=== PATIENT | male | born 1955 | race Caucasian/White ===

== ENCOUNTER → 2018-03-25 15:11 | Outpatient (CLI) | payer OTHER, SELFPAY ==
[2018-03-25 18:09] LABS: Absolute Lymphocyte Count 1.39 X10^3/ul (0.83-4.51); Absolute Neutrophil Count 5.6 X10^3/uL (2.0-7.7); Basophil# 0.02 X10^3/uL; Basophil% 0.3 % (0-1); Eosinophil# 0.04 X10^3/uL; Eosinophils% 0.5 % (0-5); Hemoglobin 14.8 g/dl (13.0-16.5); Lymphocyte # 1.39 X10^3/ul (4.0); Lymphocyte % 18.7 % (19-41); Mean Corp Hgb Conc 33.6 g/gl (32-36); Mean Corpuscular Volume 92.1 fL (80-94); Mean Platelet Vol. 10.2 fl (6.2-12.0); Monocyte# 0.41 X10^3/uL; Monocyte% 5.5 % (0-10); Neutrophil # 5.59 X10^3/uL (2.7-7.7); Platelet Count 216 K/mm3 (150-450); RBC Distribution Width CV 12.4 % (11.6-14.6); RBC Distribution Width SD 41.7 fl (35.1-43.9); Red Blood Count 4.78 M/mm3 (4.6-6.2); White Blood Count 7.5 K/mm3 (4.4-11.0)
[2018-03-25 18:10] LABS: POSITIVE COUNT NO; POSITIVE DIFFERENTIAL NO; POSITIVE MORPHOLOGY NO
[2018-03-25 18:22] LABS: AST(SGOT) 16 U/L (15-37); Alanine Aminotransfer ALT/SGPT 30 U/L (16-61); Alkaline Phosphatase 65 U/L (45-117); Anion Gap 7 (5-15); BUN 20 mg/dL (7-18); BUN/Creat Ratio 25.3 RATIO (10-20); Chloride 105 mmol/L (98-107); Cholesterol 168 mg/dL (200); Creatinine, Serum 0.79 mg/dL (0.70-1.30); EST Glomerular Filtration Rate 106 mL/min (>60); Est Glom Filt Rate - Afr Amer 129 mL/min (>60); Glucose 88 mg/dL (74-106); High Density Lipoprotein 49 mg/dL; Potassium 4.1 mmol/L (3.5-5.1); Sodium Level 139 mmol/L (136-145); Triglycerides 132 mg/dL; Very Low Density Lipoprotein 26 mg/dL (5-40)
== END ==
PROVIDERS: Family Provider Family Medicine; PCP Family Medicine; Visit Provider Family Medicine
DX: Z00.00 Encounter for general adult medical examination without abnormal findings (principal)
CPT/HCPCS: 36415; 80053; 80061; 85025

== ENCOUNTER → 2019-07-31 06:15 | Outpatient (CLI) | payer OTHER, SELFPAY ==
[2019-07-31 08:17] LABS: M R Staph aureus DNA By PCR Negative (Negative); Probe Check PASS; Specimen Processing Control PASS
== END ==
PROVIDERS: Family Provider Family Medicine; PCP Family Medicine; Referring Provider Internal Medicine Pulmonary Disease; Visit Provider Internal Medicine Pulmonary Disease
DX: T78.40XA Allergy, unspecified, initial encounter (principal)
CPT/HCPCS: 87641

== ENCOUNTER 2020-02-23 16:30 | Outpatient (RCR) | payer OTHER, SELFPAY ==
--- NOTE | 2020-02-18 18:07 | HP.PTEVAL_ITS ---
Patient's Visit Information NAKUL JOINER is a 64 year old M referred to Physical Therapy by Darnell Mccollum DO with a diagnosis of LBP. Date of Evaluation: 02/18/20 Physical Therapist: Get Ross PT, ATC - Visit Plan Frequency: 2x /Week Duration: 3 Weeks Plan: REIL, core strengthening, postural education, HEP. - Subjective Subjective: Pt reports he has had LBP for 3 weeks. Pt reports he has had this pain in the past that resolved itself. Pt notes the pain had an insidious onset in nature. Pt reports he has been on an antiinflammatory which has helped some. Pt reports it is tight in his L glute region. Pt reports occasional R LE tingling and numbness, but yolanda right now although his R foot feels like is wants to fall asleep right now. No sleep difficulty at this time secondary to pain. Pt reports he is able to perform most of his ADL's and work requirements without significant difficulty. 1/10 pain at rest, 9/10 pain at worst. Pt reports riding in a car, standing after sitting, all increase his pain. - Pain R LBP Pain Intensity (Out of 10): 1 Pain Intensity Range: 9 - Objective Neuro: B LE sensation is WNL to light touch. B patellar reflex= 2/3. MMT: B LE's are grossly 4/5 throughout. ROM: Pt is lmoderately limited with ext. WNL all other motions. Repeated movements: RFIS increased pain. REIL 10x2 decreased pain. Flexibility: B LE's WNL - Goals Goal 1:: Decrease LBP x 50% to aid with IADL's Goal Time Frame: 2-4 Weeks Goal 2:: Increase L/S ROM x 1 grade to aid with IADL's Goal Time Frame: 2-4 Weeks Goal 3:: I with HEP Goal Time Frame: 2-4 Weeks - Rehabilitation Potential Physical Therapy Diagnosis: Pt has LBP, decreased ROM, and limitations with work tolerance secondary to L/S derrangment Rehabilitation Potential: Good - Anticipated Interventions Patient/Client Instruction: Educate patient on: Condition, Plan of Care For the Purpose of:: To improve self management Therapeutic Exercise to Include: Strength training, Body mechanics, Postural training, Active ROM, Dynamic Lumbar Stabilization, Colleen Exercises For the Purpose of:: To decrease pain, To increase ROM, To improve muscle performance and motor function Thank you for the opportunity to evaluate your patient. For Medicare and Medicare HMO plans, please review the plan of care and approve it. It will need to be FAXED BACK to us at [phone] for Medicare purposes. For Medicare only, by signing this I certify the plan of care. Please let me know if there are questions or concerns regarding this plan of care. Physician Signature: Date:
--- NOTE | 2020-07-27 12:23 | HP.PT.NRP ---
NAKUL Lucio RHYS was seen in my office for initial evaluation on 02/18/20. The following Plan of Care was established for this patient: Initial Frequency: 2x /Week Initial Duration: 3 Weeks Patient/Client Instruction: Educate patient on: Condition, Plan of Care For the Purpose of:: To improve self management Therapeutic Exercise to Include: Strength training, Body mechanics, Postural training, Active ROM, Dynamic Lumbar Stabilization, Colleen Exercises For the Purpose of:: To decrease pain, To increase ROM, To improve muscle performance and motor function This patient was last seen in our office . Pertinent comments regarding their Physical therapy will appear below: Pt was treated for 2 PT visits for low back pain through 02/23/20. Pt has not returned through todays date and is discontinued at this time. At this point I will be discontinuing this patient from physical therapy. I would be happy to see this patient again in the future if found appropriate by the physician. Thank you! Get Ross, PT, ATC
== END 2020-02-23 19:00 | disposition home or self-care (01) ==
LOC: PT 16:30
PROVIDERS: PCP Family Medicine; Referring Provider Family Medicine; Visit Provider Family Medicine
DX: M54.16 Radiculopathy, lumbar region (principal)
CPT/HCPCS: 97110; 97161

== ENCOUNTER 2021-02-02 12:00 | Outpatient (RCR) | payer OTHER, SELFPAY ==
[2016-06-15 20:22] VITALS: BMI 24.3
[2021-02-02] MEDS: COVID-19 VACC, MRNA(PFIZER)/PF 30 MCG/0.3 ML SYRINGE IM (10:11)
[2021-02-23] MEDS: COVID-19 VACC, MRNA(PFIZER)/PF 30 MCG/0.3 ML SYRINGE IM (10:04)
== END 2021-05-02 23:59 ==
LOC: IMMUN 12:00
PROVIDERS: PCP Family Medicine; Visit Provider Family Medicine
DX: Z23 Encounter for immunization (principal)
CPT/HCPCS: 0001A; 0002A; 91300

== ENCOUNTER → 2021-11-06 12:30 | Outpatient (CLI) | payer SELFPAY ==
--- NOTE | 2021-11-06 12:38 | CT_ITS ---
STUDY: CARDIAC CALCIUM SCORING - CT CHEST REASON FOR EXAM: Male, 66 years old. CTA CORONARY ABNL CARDIOVASCULAR RESULTS TECHNIQUE: Axial non-enhanced images were acquired through the heart for the sole purpose of measuring coronary artery calcium. Individualized dose optimization techniques were used for this CT. COMPARISON: None. FINDINGS: Visualized surrounding anatomy: Normal. Left Main Coronary Artery: 0 Left Anterior Descending Artery: 0 Left Circumflex Artery: 0 Right Coronary Artery: 12.3 Total Calcium Score: 12.3 CT/Limited Chest CT w/CCTA IMPRESSION: A Calcium Score of 12.3 places the patient in the approximate < 25 percentile, based on the TRAN data calculator. Please go to: [email or web address]-[email or web address]/input.[email or web address] , for a description of the calculator. Electronically Signed: Get Paniagua MD at 14:55 EST , Service support ,
[2021-11-06 12:44] VITALS: BP 145/78; PULSE 64; RESP 18; O2SAT 96; BMI 25.1
--- NOTE | 2021-11-06 17:46 | CA.SCORE ---
Calcium Scoring Date of Study:: 11/06/21 Coronary Calcium Scoring: High-resolution Computed Tomographic imaging of the chest was performed on [ ], with particular attention paid to the coronary arteries. Images from the examination were analyzed for the presence and extent of coronary artery calcification , using coronary calcium quantification software. The patient tolerated the procedure well and there were no complications. The results of the coronary calcification analysis are provided below. Findings Coronary Artery Left Main (LM): 0 Left Anterior Descending (LAD): 0 Left Circumflex (LCX): 0 Right Coronary Artery (RCA): 12.3 Total Agatston Score: 12.3 Percentile Ranking: According to prepublished reference tables less than 25% of patients of the same gender / similar age had the same / lower scores Calcium Scoring Interpretation: 0 No identifiable atherosclerotic plaque. Very low cardiovascular disease risk. <5% chance of presence coronary artery disease A Negative Examination 1-10 Minimal Plaque burden. Significant coronary artery disease very unlikely. 11-100 Mild plaque burden. Likely mild or minimal coronary atherosclerosis. 101-400 Moderate plaque burden Moderate non-obstructive coronary artery disease highly likely. Over 400 Extensive plaque burden. High likelihood of at least one significant coronary stenosis (>50% diameter) Calcium Score: 11 - 100 Likely mild or minimal coronary stenosis Conclusion: Continue cardiovascular risk factor evaluation and care as deemed appropriate. This note was generated using a voice recognition system and there may be incorrect words, spelling or punctuation that were not noted when reviewing the office note prior to saving.
== END ==
PROVIDERS: PCP Family Medicine; Referring Provider Family Medicine; Visit Provider Family Medicine
DX: R07.89 Other chest pain (principal)
CPT/HCPCS: 75571; 76380

== ENCOUNTER → 2021-11-21 15:18 | Outpatient (CLI) | payer OTHER, SELFPAY | PROVIDERS: PCP Family Medicine; Visit Provider Physician Assistant Surgical | DX: U07.1 COVID-19 (principal) | CPT/HCPCS: 87635; U0005; U0003 ==

== ENCOUNTER 2022-10-10 13:42 | Outpatient (CLI) | payer MEDICARE, SELFPAY ==
--- NOTE | 2022-10-10 13:44 | ECHOD_ITS ---
Reason For Study: CSA Procedure This was a 2D Doppler, Color Flow transthoracic echocardiogram. Exam performed in department. Left Ventricle Normal size and thickness. The left ventricular ejection fraction is 60 %. Normal diastololic function. Right Ventricle Normal right ventricle. Atria The left and right atria are normal. Mitral Valve Mild (1+) mitral valve insufficiency. Tricuspid Valve Mild tricuspid valve insufficiency. Normal pulmonary artery pressure. Aortic Valve Normal aortic valve. Pulmonic Valve The pulmonic valve is not well visualized. Great Vessels Normal sized aortic root. Pericardium/Pleural No pericardial effusion. MMode/2D Measurements & Calculations LVIDd: 4.8 cm IVSd: 0.91 cm Ao root diam: 3.0 cm LVIDs: 3.1 cm LVPWd: 0.98 cm RVDd: 3.5 cm FS: 36.0 % LAV(MOD-bp): 54.7 ml LVAd ap4: 27.3 cm2 LVAd ap2: 26.0 cm2 LAV(MOD-bp) Indexed: 27.4 ml/m2 LVLd ap4: 7.1 cm LVLd ap2: 7.3 cm LAV(MOD-sp2): 55.8 ml EDV(MOD-sp4): 87.4 ml EDV(MOD-sp2): 76.3 ml LAV(MOD-sp4): 51.8 ml EDV(sp4-el): 89.9 ml EDV(sp2-el): 78.9 ml LVAs ap4: 13.0 cm2 LVAs ap2: 13.4 cm2 LVLs ap4: 5.0 cm LVLs ap2: 5.7 cm ESV(MOD-sp4): 29.7 ml ESV(MOD-sp2): 27.5 ml ESV(sp4-el): 28.5 ml ESV(sp2-el): 27.0 ml EF(MOD-sp4): 66.1 % EF(MOD-sp2): 64.0 % EF(sp4-el): 68.3 % SV(MOD-sp4): 57.8 ml SV(MOD-sp2): 48.9 ml SV(sp4-el): 61.4 ml LA dimension(2D): 3.9 cm LA A4 area: 17.0 cm2 RA A4 area: 17.6 cm2 Time Measurements MV dec time: 0.24 sec Doppler Measurements & Calculations MV E max reg: 51.8 cm/sec Lat Peak E' Reg: 8.1 cm/sec Med Peak E' Reg: 9.6 cm/sec MV A max reg: 59.9 cm/sec E/E' lat: 6.4 E/E' med: 5.4 MV E/A: 0.87 MV dec slope: 233.7 cm/sec2 Ao V2 max: 105.1 cm/sec LV V1 max: 86.4 cm/sec Ao max P.4 mmHg LV V1 max P.0 mmHg Ao V2 mean: 74.2 cm/sec LV V1 mean P.8 mmHg Ao mean P.5 mmHg LV V1 mean: 63.3 cm/sec Ao V2 VTI: 23.3 cm LV V1 VTI: 19.1 cm PA V2 max: 66.2 cm/sec TR max reg: 233.1 cm/sec TR max P.8 mmHg ECHO/Echo Complete Interpretation Summary The left ventricular ejection fraction is 60 %. Mild (1+) mitral valve insufficiency. Mild tricuspid valve insufficiency. Ordering Physician: Sergio Graham V Referring Physician: Darnell Mccollum Performed By: Tracee Winchester RDCS, RVT
== END 2022-10-10 23:59 | disposition home or self-care (01) ==
PROVIDERS: PCP Family Medicine; Visit Provider Internal Medicine Pulmonary Disease
DX: G47.33 Obstructive sleep apnea (adult) (pediatric) (principal); G47.37 Central sleep apnea in conditions classified elsewhere
CPT/HCPCS: 93306

== ENCOUNTER → 2022-10-23 | Outpatient (CLI) | payer MEDICARE, SELFPAY ==
[2022-10-23 12:25] LABS: Absolute Lymphocyte Count 1.11 X10^3/uL (0.83-4.51); Absolute Neutrophil Count 4.5 X10^3/uL (2.0-7.7); Basophil# 0.02 X10^3/uL; Basophil% 0.3 % (0-1); Eosinophil# 0.05 X10^3/uL; Eosinophils% 0.8 % (0-5); Hematocrit 45.7 % (40-54); Hemoglobin 15.4 g/dL (13.0-16.5); Lymphocyte # 1.11 X10^3/ul (0.83-4.51); Lymphocyte % 18.3 % (19-41); Mean Corp Hgb Conc 33.7 g/dL (32-36); Mean Corpuscular Hgb 30.8 pg (27.0-32.0); Mean Corpuscular Volume 91.4 fL (80-94); Mean Platelet Vol. 10.2 fl (6.2-12.0); Monocyte# 0.42 X10^3/uL; Monocyte% 6.9 % (0-10); NRBC Flagged by Analyzer 0 % (0-5); Neutrophil # 4.47 X10^3/uL (2.7-7.7); Neutrophil % 73.5 % (47-70); Platelet Count 248 K/mm3 (150-450); RBC Distribution Width CV 12.4 % (11.6-14.6); RBC Distribution Width SD 41.1 fl (35.1-43.9); White Blood Count 6.1 K/mm3 (4.4-11.0)
[2022-10-23 13:15] LABS: ALB/GLOB Ratio 0.9 RATIO (0.9-2.4); AST(SGOT) 26 U/L (15-37); Alanine Aminotransfer ALT/SGPT 44 U/L (16-61); Albumin, Serum 3.7 g/dL (3.2-5.0); Alkaline Phosphatase 75 U/L (45-117); Anion Gap 10 (5-15); BUN 17 mg/dL (7-18); BUN/Creat Ratio 16.7 RATIO (10-20); Calcium,Total 9.1 mg/dL (8.5-10.1); Chloride 103 mmol/L (98-107); Cholesterol 245 mg/dL (200); Creatinine, Serum 1.02 mg/dL (0.70-1.30); EST Glomerular Filtration Rate 78 mL/min (>60); Est Glom Filt Rate - Afr Amer 94 mL/min (>60); Globulin 4.1 g/dL (2.2-4.2); Glucose 101 mg/dL (74-106); High Density Lipoprotein 56 mg/dL; PSA,Total - Annual Screen 3.28 ng/mL (0.00-4.00); Potassium 3.9 mmol/L (3.5-5.1); Protein, Total 7.8 g/dL (6.4-8.2); Sodium Level 137 mmol/L (136-145); Triglycerides 122 mg/dL; Very Low Density Lipoprotein 24 mg/dL (5-40)
[2022-10-23 13:33] LABS: Hepatitis C Antibody Non-Reactive (Nonreactive)
== END | disposition home or self-care (01) ==
LOC: BFHLAB 08:55
PROVIDERS: PCP Family Medicine; Visit Provider Family Medicine
DX: I10 Essential (primary) hypertension (principal); R53.83 Other fatigue; Z12.5 Encounter for screening for malignant neoplasm of prostate; Z11.59 Encounter for screening for other viral diseases; Z91.89 Other specified personal risk factors, not elsewhere classified
CPT/HCPCS: 36415; 80053; 80061; 84153; 84403; 85025; 86803; G0103

== ENCOUNTER 2023-04-25 09:27 | Day surgery (SDC) | payer MEDICARE, SELFPAY ==
--- NOTE | 2023-04-19 07:09 | EKG12_ITS ---
Test Reason : PRE OP Blood Pressure : / mmHG Vent. Rate : 063 BPM Atrial Rate : 063 BPM P-R Int : 144 ms QRS Dur : 086 ms QT Int : 380 ms P-R-T Axes : 065 042 058 degrees QTc Int : 388 ms Normal sinus rhythm Normal ECG Confirmed by KAR MARTINEZ, RAYMUNDO ([id number]), advertising editor SNOW CUMMINGS ([id number]) on 04/19/2023 1:29:24 PM Referred By: Munir Chávez Confirmed By:RAYMUNDO LAKHANI MD
[2023-04-19 08:35] LABS: Hematocrit 43.6 % (40-54); Hemoglobin 14.5 g/dL (13.0-16.5); Mean Corp Hgb Conc 33.3 g/dL (32-36); Mean Corpuscular Hgb 30.8 pg (27.0-32.0); Mean Corpuscular Volume 92.6 fL (80-94); Mean Platelet Vol. 10.2 fl (6.2-12.0); Platelet Count 241 K/mm3 (150-450); RBC Distribution Width CV 11.9 % (11.6-14.6); RBC Distribution Width SD 41.1 fl (35.1-43.9); Red Blood Count 4.71 M/mm3 (4.6-6.2); White Blood Count 6.5 K/mm3 (4.4-11.0)
[2023-04-25] VITALS (7 sets, daily range): BP systolic 121–151; BP diastolic 85–91; PULSE 66–95; RESP 12–16; TEMP 36.1–37.2; O2SAT 89–97; BMI 26.9
[2023-04-25] MEDS: Lactated Ringers 1,000 ML 15 ML IV (09:40)
--- NOTE | 2023-04-25 10:18 | PCM.HP.BLA ---
History and Physical Date of Admission: 04/25/23 Intake Vital Signs ? 04/08/2314:55 Height 5 ft 10 in Weight: 193 lb BMI 27.6 BP 135/82 H Blood Pressure Location Rt brachial Position Sitting Respiration 17 Pulse 95 Pulse Source Monitor Pulse Oximetry (%) 95 Oxygen Delivery Method room air Intake Visit Reasons:?UMBILICAL HERNIA Chief Complaint: umbilical hernia Is patient in pain?: No Allergies No Known Allergies Allergy (Verified 04/08/23 14:56) Medications cholecalciferol (vitamin D3) 25 mcg (1,000 unit) capsule 25 mcg PO DAILY 04/08/23 [History Confirmed 04/08/23] magnesium 200 mg tablet 200 mg PO DAILY 04/08/23 [History Confirmed 04/08/23] multivitamin 1 tab PO DAILY 04/08/23 [History Confirmed 04/08/23] omega 4-dkp-bws-fish oil 60 mg-90 mg-500 mg capsule (Fish Oil) 1 cap PO DAILY 04/08/23 [History Confirmed 04/08/23] ropinirole 0.25 mg tablet 0.25 mg PO DAILY 04/08/23 [History Confirmed 04/08/23] soybean, fermented 50 mg capsule (Nattokinase) 50 mg PO DAILY 04/08/23 [History Confirmed 04/08/23] PFSH Family History?(Updated 04/08/23 @ 14:54 by Federica Lantigua) Daughter Colon cancerBrother Colon cancerMother Colon cancerFather Cancer ?? ? skin Hypertension Social History?(Updated 04/08/23 @ 14:53 by Federica Lantigua) Smoking Status:? Former smoker alcohol intake:? current HPI HPI HPI: Patient is a 67-year-old male here to discuss his umbilical hernia.? He has been there for about a year.? It has grown slightly larger.? Painful with heavy lifting.? Denies any nausea or vomiting. ROS General General: No weight change, appetite, fatigue, colon cancer, breast cancer or weakness HEENT HEENT: No difficulty swallowing, eye injury, eye surgery, swollen glands or hoarseness Endo Endocrine: No thyroid disease, diabetes mellitus, thyroid cancer, Hair loss, heat intolerance or cold intolerance Skin Skin: No rash or changing moles Musc Musculoskeletal: No back problems, arthritis, rheumatoid arthritis, gout or joint pain Cardio Cardiovascular: No murmur, pacemaker, heart disease, atrial fibrillation, high blood pressure, heart attack, heart stent, palpitations, shortness of breat with exertion or chest pain Psych Psychiatric: No depression, anxiety or hearing voices Resp Respiratory: No shortness of breath, Yes sleep apnea, No cough, No COPD, No asthma, No emphysema and No wheezing Gastro Gastrointestinal: No abdominal pain, No nausea or vomiting, No diarrhea, Yes constipation, No blood in stool, No acid reflux, No hemorrhoids, No ulcers, No gallbladder problem and No black,tarry stools Helder Hematologic: No blood thinners, No blood disorders, No bleeding, No anemia and No blood clots Neuro Neurologic: No system reviewed and no additional complaints, except as documented, No as per HPI, No abnormal gait, No abnormal hearing, No abnormal movements, No abnormal speech, No behavioral changes, No burning sensations, No confusion, No convulsions, No disequilibrium, No dizziness, No localized weakness, No frequent falls, No headache(s), No lack of coordination, No loss of vision, No memory loss, No numbness, No other visual disturbances, No radicular pain, No restless legs, No sensory deficit, No syncope, No tingling, No tremor(s), No weakness and No other Exam Const General: cooperative Orientation: alert and oriented x3 HENMT Head: normal to inspection Neck Neck: normal visual inspection and full ROM Chest Chest palpation & inspection: normal inspection of the chest Resp Effort & Inspection: normal respiratory effort Auscultation: clear to auscultation bilaterally Cardio Rate: regular rate Rhythm: regular rhythm GI Inspection: non-distended Palpation: soft, hernia umbilical and nontender Skin General: no rashes or lesions noted Neuro General: patient alert and patient oriented x3 Extrem General: full ROM Psych Appearance: grossly normal Mental Status: mental status grossly normal Assessment and Plan Assessment and Plan (1) Umbilical hernia: ?Status:?Acute ?Qualifiers: ?Obstruction and gangrene presence:?without obstruction or gangrene? Qualified Code(s):?K42.9 - Umbilical hernia without obstruction or gangrene ?Plan: Patient has a small umbilical hernia.? It is reducible.? It is right around 1 cm in diameter.? I discussed open umbilical hernia repair with possible mesh.? I expressed that I would place mesh if the hernia defect was over 1 cm.? I discussed the procedure in detail as well as the risks.? I discussed the risks of bleeding, infection, recurrence of hernia, mesh placement, injury to underlying organs.? Patient or stands all the risks and is willing to proceed. Munir Chávez MD Pager: [facility] [address] [place] [address], [address] [place] [phone] Office: I have examined the patient and the H&P has been reviewed. There are no clinical changes since date of exam.
[2023-04-25] MEDS: Cefazolin 2 GM in 0.9% Normal Saline 100 ML IV (10:51)
[2023-04-25] MEDS: Bupivacaine Mpf 0.5% 30 ML VIAL (11:03)
--- NOTE | 2023-04-25 11:34 | PCM.OPRPT ---
Report of Operation Date of Procedure: 04/25/23 Pre-Operative Diagnosis: Umbilical hernia 1 cm Post-Operative Diagnosis: Same Surgery/Procedure Performed:: Umbilical hernia repair Description of Procedure: Patient was brought back to the operating room and MAC anesthesia was induced. The abdomen was prepped and draped in usual sterile fashion. Incision was marked superior to the umbilicus and injected with local anesthetic. Incision was then made with scalpel and deepened to the hernia sac. Hernia sac was dissected circumferentially and reduced. Fascia was cleaned and identified. Fascia was reapproximated using interrupted 0 Nurolon sutures. Subcutaneous tissue was irrigated and suctioned dry. The umbilical stalk was then tacked to the fascia using 3-0 Vicryl suture. The incisions were then closed with interrupted 3-0 Vicryl sutures. Steri-Strips and bandages were applied. Patient was taken to PACU in stable condition. Grafts/Implants Used: No mesh was used due to the small size of the hernia defect Admit VTE Documentation VTE Mechan Device Prophylaxis: SCD's
--- NOTE | 2023-04-25 11:37 | DCINST_ITS ---
Discharge Instructions Procedure Hernia Diet Discharge Diet: Light diet - advance as tolerated Activity Discharge Activity: May Not Drive (for 2-3 days or while taking narcotic pain meds.) and May Shower (with the bandage in place 1-2 days after surgery.) Lifting Restrictions: 20 pounds for 4 weeks. Additional Activity Instructions:: Climbing stairs is fine, walking is encouraged. Sitting in bed may be uncomfortable. Sitting up using your lateral muscles (sitting up sideways) is usually more comfortable. Do not drive, work heavy equipment of sign legal documents for 24 hours. Pain medications may cause nausea, you should typically eat light foods as you take your pain medications. Pain medications may also cause constipation. If you have difficulty with this, discuss with your doctor. Dressing / Incision Call your doctor if your incision/area has: Continuous Slow Oozing, Sudden Increased Bleeding, Increased Pain/ Swelling, Increased Redness and Foul Smelling Discharge Call your doctor if you observe: Fever of 101 or Higher Suture Line Care: Avoid Pulling/Pushing and Avoid Pinching/Bending Remove Dressing in: 2 days (Remove clear bandages in 2 days, remove Steri-Strips in 7 to 10 days.) Cleanse incision/area with: Soap & Water Follow Up Care Please Follow Up With: Munir Chávez MD When: Please call to schedule 2 week follow up appointment. [phone] Test Results: Test results from this visit will be discussed in further detail at your follow- up appointment, if applicable. Discharge Plan Admission Attending Provider: Munir Chávez Primary Care Provider: Darnell Mccollum Instructions Additional Instructions / Restrictions: Ibuprofen and Tylenol alternating for pain, oxycodone for breakthrough. Discharge Orders/Prescriptions Prescriptions: New oxycodone 5 mg tablet 5 - 10 mg PO Q6H PRN (Reason: pain) 5 Days Qty: 10 0RF No Action omega 6-onq-qhq-fish oil [Fish Oil] 60-90-500 mg capsule 1 cap PO DAILY magnesium 200 mg tablet 200 mg PO DAILY multivitamin Tablet 1 tab PO DAILY ropinirole 0.25 mg tablet 0.25 mg PO DAILY cholecalciferol (vitamin D3) 25 mcg (1,000 unit) capsule 25 mcg PO DAILY Nattokinase 50 mg capsule 50 mg PO DAILY Other Ambulatory Orders: 12 Lead EKG (Routine) Timeframe: [id number] Location: None Selected Ordered By: Dr. Contreras Freeman Referrals / Follow Up: Darnell Mccollum DO [Primary Care Provider] - Disposition Disposition (needs filled in before D/C Order can be placed): Home, Self Care
== END 2023-04-25 13:25 | disposition home or self-care (01) ==
LOC: SDC 09:29 → AC 09:29
PROVIDERS: Anesthesiology; PCP Family Medicine; Referring Provider Surgery; Visit Provider Surgery
PROC: (CPT 49591; principal; 2023-04-25 10:45)
DX: K42.9 Umbilical hernia without obstruction or gangrene (principal); Z87.891 Personal history of nicotine dependence; G47.30 Sleep apnea, unspecified; Z99.89 Dependence on other enabling machines and devices; G25.81 Restless legs syndrome
CPT/HCPCS: 49591; 00830; 36415; 85027; 93005; J7120; J2405

== ENCOUNTER → 2024-02-11 | Outpatient (CLI) | payer MEDICARE, SELFPAY ==
[2024-02-11 15:41] LABS: Absolute Lymphocyte Count 1.48 X10^3/uL (0.83-4.51); Absolute Neutrophil Count 5.9 X10^3/uL (2.0-7.7); Basophil# 0.02 X10^3/uL; Basophil% 0.3 % (0-1); Hemoglobin 14.7 g/dL (13.0-16.5); Lymphocyte # 1.48 X10^3/ul (0.83-4.51); Lymphocyte % 18.9 % (19-41); Mean Corp Hgb Conc 33.4 g/dL (32-36); Mean Corpuscular Hgb 30.8 pg (27.0-32.0); Mean Corpuscular Volume 92.1 fL (80-94); Mean Platelet Vol. 10.2 fl (6.2-12.0); Monocyte# 0.37 X10^3/uL; Monocyte% 4.7 % (0-10); NRBC Flagged by Analyzer 0 % (0-5); Neutrophil # 5.94 X10^3/uL (2.7-7.7); Neutrophil % 75.7 % (47-70); Platelet Count 232 K/mm3 (150-450); RBC Distribution Width CV 12.1 % (11.6-14.6); RBC Distribution Width SD 40.7 fl (35.1-43.9); Red Blood Count 4.78 M/mm3 (4.6-6.2); White Blood Count 7.8 K/mm3 (4.4-11.0)
[2024-02-11 16:44] LABS: ALB/GLOB Ratio 0.9 RATIO (0.9-2.4); AST(SGOT) 20 U/L (15-37); Alanine Aminotransfer ALT/SGPT 28 U/L (16-61); Albumin, Serum 3.8 g/dL (3.2-5.0); Alkaline Phosphatase 85 U/L (45-117); Anion Gap 9 (5-15); BUN 13 mg/dL (7-18); BUN/Creat Ratio 12.7 RATIO (10-20); Calcium,Total 9.5 mg/dL (8.5-10.1); Chloride 104 mmol/L (98-107); Cholesterol 231 mg/dL (200); Creatinine, Serum 1.02 mg/dL (0.70-1.30); EST Glomerular Filtration Rate 78 mL/min (>60); Est Glom Filt Rate - Afr Amer 94 mL/min (>60); Globulin 4.2 g/dL (2.2-4.2); Glucose 90 mg/dL (74-106); High Density Lipoprotein 48 mg/dL; PSA,Total - Annual Screen 3.66 ng/mL (0.00-4.00); Sodium Level 139 mmol/L (136-145); Triglycerides 159 mg/dL; Very Low Density Lipoprotein 32 mg/dL (5-40)
== END | disposition home or self-care (01) ==
LOC: MTLAB 12:32
PROVIDERS: PCP Family Medicine; Referring Provider Family Medicine; Visit Provider Family Medicine
DX: I10 Essential (primary) hypertension (principal); E78.5 Hyperlipidemia, unspecified; Z12.5 Encounter for screening for malignant neoplasm of prostate
CPT/HCPCS: 36415; 80053; 80061; 84153; 85025; G0103

== ENCOUNTER 2024-06-05 13:00 | Emergency (ER) | payer MEDICARE, SELFPAY ==
[2024-06-05 13:01] VITALS: BP 108/93; PULSE 70; RESP 16; TEMP 36.1; O2SAT 97; BMI 26.7
--- NOTE | 2024-06-05 13:23 | VDLE_ITS ---
Reason For Study: Right leg swelling RIGHT GSV is normal. CFV is compressible, spontaneous, phasic, competent and demonstrates normal augmentation. FV is compressible, spontaneous, phasic, competent and demonstrates normal augmentation. POP V is compressible, spontaneous, phasic, competent and demonstrates normal augmentation. T/P Trunk is compressible. PTV is compressible. RT PerV is compressible. Nonvascularized strucutre noted in the right popfossa to proximal calf. Procedure This is a venous duplex using B-mode, color flow and spectral Doppler. Exam performed portable in ED. A preliminary report was called and/or faxed to Dr. Allen. VL/Venous Duplex US, Unilateral Interpretation Summary Deep veins of the right lower extremity are patent and compressible segmentally . There is no evidence of right lower extremity deep vein thrombosis. The right great sapheno us vein appears patent and compressible segmentally. Ordering Physician: Roverto Allen Referring Physician: Darnell Mccollum Performed By: Katie Curry RVT
--- NOTE | 2024-06-05 13:31 | EDS_ITS ---
HPI History of Present Illness Chief Complaint: Lower Extremity Injury Detail of Chief Complaint: Right leg/calf swelling Narrative Narrative: Patient presents to the emergency department complaint of swelling and discomfort to the right calf that started 5 days ago. Patient denies injury. 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 Denies chest pain or shortness of breath. Denies recent travel or surgery. No history of PE or DVT. Patient's primary care physician referred him to the ED to rule out DVT. Patient has had no fever or chills or sweats. PFSH PFS Medical History CPAP (continuous positive airway pressure) dependence Former smoker History of echocardiogram Restless legs Wears glasses Home Medications ?Medication ?Instructions ?Recorded ?Last Taken ?Type cholecalciferol (vitamin D3) 25 25 mcg PO DAILY 04/08/23 Unknown History mcg (1,000 unit) capsule magnesium 200 mg tablet 200 mg PO DAILY 04/08/23 Unknown History multivitamin 1 tab PO DAILY 04/08/23 Unknown History omega 6-nes-uva-fish oil 60 mg-90 1 cap PO DAILY 04/08/23 Unknown History mg-500 mg capsule (Fish Oil) ropinirole 0.25 mg tablet 0.25 mg PO DAILY 04/08/23 Unknown History soybean, fermented 50 mg capsule 50 mg PO DAILY 04/08/23 Unknown History (Nattokinase) Allergy/AdvReac Type Severity Reaction Status Date / Time No Known Allergies Allergy Verified 06/05/24 13:04 Family History Daughter Colon cancer Brother Colon cancer Mother Colon cancer Father Cancer skin Hypertension Surgical History History of nasal surgery Social History Smoking Status: Former smoker alcohol intake: current ROS ROS ED Review of Systems ROS Unobtainable: other Constitutional Constitutional ED: Reports lethargy; Denies chills, fever(s), sweats or weight loss Eyes Eyes: Denies blurry vision, change in vision or diplopia ENT ENT ED: Denies rhinorrhea or sore throat Cardiovascular Cardiovascular: Denies chest pain, orthopnea or racing heartbeat Respiratory/Chest Respiratory/Chest: Denies cough, dyspnea, dyspnea on exertion, orthopnea or sputum Gastrointestinal Gastrointestinal: Denies abdominal pain, diarrhea, nausea or vomiting Genitourinary Genitourinary ED: Denies dysuria, hematuria or urinary frequency Musculoskeletal Musculoskeletal: Reports other Details: Right calf pain and swelling ; Denies arthralgias, back pain, myalgias or neck pain Integumentary Denies abscess, Abrasions or rash Neurologic Neurologic: Denies headache(s) or weakness Psychiatric Psychiatric: Denies anxiety, depression or suicidal thoughts Endocrine Endocrinology: Denies polydipsia, polyphagia or polyuria Hematologic/Lymphatic Hematologic/Lymphatic: Denies easy bleeding, easy bruising or lymphadenopathy Allergic/Immunologic Allergic/Immunologic ED: Denies mouth swelling, tongue swelling or urticaria EXAM Physical Exam Const Vital Signs: 06/05/24 13:01 Temperature 97 F L Temperature Source Temporal Pulse Rate 70 Respiratory Rate 16 Blood Pressure 108/93 H Blood Pressure Mean 98 Pulse Ox 97 Oxygen Delivery Method Room Air Positive well nourished and well developed General Appearance ED: well developed and NAD HEENT Reports TM's clear and moist mucous membranes normocephalic and atraumatic; Negative for trauma or tenderness Tympanic Membrane ED: Yes TM's clear Eyes PERRL and EOMs intact bilaterally General Eye ED: Negative for pale conjunctiva or scleral icterus Neck no lymphadenopathy, supple and no JVD General: Negative for tenderness Chest Wall inspection of chest normal and palpation of chest normal Chest: Negative for tenderness Resp normal respiratory effort and clear to auscultation bilaterally Effort and Inspection: Negative for respiratory distress or pain with movement Auscultation: Negative for rhonchi, wheezes or diminished lung sounds Cardio regular rate, regular rhythm, S1 normal heart sound, S2 normal heart sound and no murmurs Peripheral Pulses: pulses 2+ throughout GI normal to inspection, nondistended, normoactive bowel sounds, soft to palpation, non-tender, non-distended and no masses Back/Spine no CVA tenderness and no thoracic nor lumbar tenderness Extremity Extremity Narrative: Right lower extremity-patient does have some edema noted to the right calf that is asymmetric compared to the left. No ropes or cords palpated. Neurovascular intact distally. No rashes noted. No cellulitic changes. General Extremety ED: Negative for edema General Extremity: Negative for edema Neuro oriented x3, CN's II-XII intact bilaterally, no sensory deficits noted and gait normal Sensorium / Orientation: awake, alert, oriented to person, oriented to place and oriented to time Motor Exam: strength 5/5 throughout and strength abnormal Psych mental status grossly normal Skin no rashes or lesions noted and no wounds MDM MDM MDM Narrative Medical decision making narrative: Patient presents with swelling to right calf. Concern for DVT. Venous Doppler of the right lower extremity obtained was negative for DVT. He did have some fluid in the calf/gastroc. Unclear if there was a muscle tear or ruptured Randall's cyst potentially. Clinically he looks well. Will refer to orthopedics for follow-up. He does not want crutches. Will give him an Greg wrap. Patient states that he iced it yesterday and today felt much better. Does not need anything for pain. He is instructed to elevate the extremity. Discharge Plan Triage Chief Complaint: Lower Extremity Injury ED Provider: Roverto Allen Dx/Rx/DC Orders Clinical Impression: Pain of right calf Instructions: ED Muscle Strain, Extremity Prescriptions: No Action omega 5-mzb-ilp-fish oil [Fish Oil] 60-90-500 mg capsule 1 cap PO DAILY magnesium 200 mg tablet 200 mg PO DAILY multivitamin Tablet 1 tab PO DAILY ropinirole 0.25 mg tablet 0.25 mg PO DAILY cholecalciferol (vitamin D3) 25 mcg (1,000 unit) capsule 25 mcg PO DAILY Nattokinase 50 mg capsule 50 mg PO DAILY Primary Care Provider: Darnell Mccollum Referrals: Darnell Mccollum DO [Primary Care Provider] - Crescencio Bird DO [Med Staff - Active Staff] - 3-5 Days Print Language: Bel[place]ian Disposition Disposition: Home, Self Care
== END 2024-06-05 13:59 | disposition home or self-care (01) ==
PROVIDERS: Emergency Provider Emergency Medicine; PCP Family Medicine; Visit Provider Emergency Medicine
DX: M79.661 Pain in right lower leg (principal); M79.89 Other specified soft tissue disorders; Z87.891 Personal history of nicotine dependence
CPT/HCPCS: 93971; 99282

== ENCOUNTER → 2025-02-12 | Outpatient (CLI) | payer MEDICARE, SELFPAY ==
[2025-02-12 12:48] LABS: Color, Urine Yellow (Yellow); Glucose, Dipstick Normal (Normal); Ketone-Dipstick 5 mg/dl (Negative); Leukocyte Esterase-Dipstick Negative /ul (Negative); Nitrite-Dipstick Negative (Negative); Occult Blood-Urine Negative /ul (Negative); Protein-Dipstick 15 mg/dl (Negative); Urine Bilirubin Dipstick Negative (Negative); Urine Clarity Clear (Clear); Urine Urobilinogen Normal (Normal)
[2025-02-12 13:00] LABS: Absolute Lymphocyte Count 1.21 X10^3/uL (0.83-4.51); Absolute Neutrophil Count 3.3 X10^3/uL (2.0-7.7); Basophil# 0.02 X10^3/uL; Basophil% 0.4 % (0-1); Eosinophil# 0.03 X10^3/uL; Eosinophils% 0.6 % (0-5); Hematocrit 46.2 % (40-54); Hemoglobin 15.6 g/dL (13.0-16.5); Lymphocyte # 1.21 X10^3/ul (0.83-4.51); Lymphocyte % 24.8 % (19-41); Mean Corp Hgb Conc 33.8 g/dL (32-36); Mean Corpuscular Hgb 30.9 pg (27.0-32.0); Mean Corpuscular Volume 91.5 fL (80-94); Mean Platelet Vol. 10.4 fl (6.2-12.0); Monocyte# 0.26 X10^3/uL; Monocyte% 5.3 % (0-10); NRBC Flagged by Analyzer 0 % (0-5); Neutrophil # 3.34 X10^3/uL (2.7-7.7); Neutrophil % 68.7 % (47-70); Platelet Count 223 K/mm3 (150-450); RBC Distribution Width CV 12.4 % (11.6-14.6); RBC Distribution Width SD 41.6 fl (35.1-43.9); Red Blood Count 5.05 M/mm3 (4.6-6.2); White Blood Count 4.9 K/mm3 (4.4-11.0)
[2025-02-12 13:20] LABS: ALB/GLOB Ratio 1.3 RATIO (0.9-2.4); AST(SGOT) 17 U/L (<=37); Alanine Aminotransfer ALT/SGPT 18 U/L (<=46); Albumin, Serum 4.5 g/dL (3.4-4.8); Alkaline Phosphatase 77 U/L (40-129); Anion Gap 14 (5-15); BUN 19 mg/dL (4-19); Calcium,Total 10.1 mg/dL (7.6-11.0); Carbon Dioxide 22.6 mmol/L (21.0-32.0); Chloride 101 mmol/L (98-108); EST Glomerular Filtration Rate 82 (>60); Globulin 3.5 g/dL (2.2-4.2); Glucose 107 mg/dL (70-99); PSA,Total - Annual Screen 2.87 ng/mL (0.02-4.00); Potassium 4.4 mmol/L (3.3-5.1); Sodium Level 138 mmol/L (133-145); Total Bilirubin 0.46 mg/dL (0.00-1.30)
[2025-02-12 16:08] LABS: Hemoglobin A1c 5.2 % (<=5.6)
[2025-02-12 16:12] LABS: Cholesterol 239 mg/dL (<=200); High Density Lipoprotein 54 mg/dL; Low Density Lipoprotein Calc. 171 mg/dL; Triglycerides 70 mg/dL; Very Low Density Lipoprotein 14 mg/dL (5-40); cholesterol:hdl ratio screen 4.43
== END | disposition home or self-care (01) ==
LOC: BFHLAB 09:24
PROVIDERS: PCP Family Medicine; Visit Provider Family Medicine
DX: R73.01 Impaired fasting glucose (principal); E78.5 Hyperlipidemia, unspecified; Z12.5 Encounter for screening for malignant neoplasm of prostate; I10 Essential (primary) hypertension; R53.83 Other fatigue
CPT/HCPCS: 36415; 80053; 80061; 81002; 83036; 84153; 84403; 85025; G0103